=== PATIENT | female | born 1990 | race Caucasian/White ===

== ENCOUNTER 2025-05-31 05:14 | Inpatient (IN) | payer OTHER ==
[2025-05-31] MEDS ORDERED: Terbutaline 1 MG/ML SDV SUBCUT PRN (05:18)
[2025-05-31] MEDS ORDERED: Sodium Chloride 0.9% 10 ML Syringe FLUSH PRN (05:18)
[2025-05-31] MEDS ORDERED: Nalbuphine 10 MG/1 ML Vial IVPUSH PRN (05:18)
[2025-05-31] MEDS ORDERED: Carboprost Tromethamine 250 MCG/1 mL Vial IM PRN (05:18)
[2025-05-31] MEDS ORDERED: Ondansetron 4 MG/2 ML SDV IVPUSH PRN (05:18)
[2025-05-31] MEDS ORDERED: Sodium Chloride 0.9% 2.5 ML Syringe FLUSH PRN (05:18)
[2025-05-31] MEDS ORDERED: Water For Irrigation,Sterile 1,000 ML Container IRR PRN (05:18)
[2025-05-31] MEDS ORDERED: Oxytocin/0.9 % Sodium Chloride 30 UNIT/500 ML BAG IV SCH (05:30)
[2025-05-31] MEDS: Lactated Ringers 1,000 ML IV SCH (06:07)
[2025-05-31 06:15] LABS: MEAN PLATELET VOLUME 11.5 fL (9.4-12.3); NRBC ABSOLUTE 0.00 K/uL (0.00-0.02); NRBC PERCENT 0.0 /100WBC (0.0-0.2); PLATELET COUNT,PLT 206 K/uL (150-400); RED BLOOD CELL COUNT 4.47 M/uL (4.10-5.30); WHITE BLOOD CELL COUNT,WBC 13.81 K/uL (3.9-11.3)
[2025-05-31] MEDS ORDERED: ePHEDrine 50 MG/ML SDV IVPUSH PRN (07:10)
[2025-05-31] MEDS ORDERED: dexmedeTOMIDine HCl 200 MCG/2 ML SDV EPIDUR SCH (07:15)
[2025-05-31] MEDS: Ropivacaine HCl/PF 400 MG in Premix Bag 1 BAG EPIDUR SCH (09:40)
[2025-05-31] MEDS: Oxytocin/0.9 % Sodium Chloride 30 UNIT/500 ML BAG IV SCH (10:35)
[2025-05-31] MEDS ORDERED: fentaNYL 100 MCG/2 ML SDV ONE (12:06)
[2025-05-31] MEDS ORDERED: Ondansetron 4 MG/2 ML SDV ONE ×2 (13:22→13:35)
[2025-05-31] MEDS ORDERED: Aluminum Hydroxide/Magnesium Hydroxide/Simethicone Susp 30 ML Cup PO PRN (14:26)
[2025-05-31] MEDS ORDERED: Lanolin 100% Cream 7 GM Tube TOP PRN (14:26)
[2025-05-31 14:33] LABS: PH,UMBILICAL ARTERIAL 7.278 (7.18-7.38); PH,UMBILICAL VENOUS 7.324 (7.25-7.45)
[2025-06-01] MEDS: NIFEdipine 30 MG Tab.ER PO SCH (10:08)
[2025-06-01 11:29] LABS: MEAN PLATELET VOLUME 11.2 fL (9.4-12.3); NRBC ABSOLUTE 0.00 K/uL (0.00-0.02); NRBC PERCENT 0.0 /100WBC (0.0-0.2); PLATELET COUNT,PLT 169 K/uL (150-400); RED BLOOD CELL COUNT 3.59 M/uL (4.10-5.30); WHITE BLOOD CELL COUNT,WBC 18.55 K/uL (3.9-11.3)
[2025-06-01 11:57] LABS: A/G RATIO 0.7 (0.9-1.6); ALANINE AMINOTRANSFERASE,ALT 34.0 IU/L (14-63); ASPARTATE AMNIOTRANSFERASE,AST 33.0 IU/L (15-37); BILIRUBIN TOTAL 0.1 mg/dL (0.2-1.0); BLOOD UREA NITROGEN,BUN 12.0 mg/dL (7.0-18.0); CARBON DIOXIDE,CO2 20.4 mmol/L (21.0-32.0); CHLORIDE,CL 106.0 mmol/L (98-107); CREATININE 0.5 mg/dL (0.6-1.0); EST CRCL DRUG DOSING (CG) 135.61 mL/min; GLUCOSE RANDOM 105.0 mg/dL (74-106); POTASSIUM,K 3.9 mmol/L (3.5-5.1); PROTEIN TOTAL,TP 6.0 g/dL (6.4-8.2); SODIUM,NA 138.0 mmol/L (136-145)
[2025-06-01 12:06] LABS: ESTIMATED GFR 125.0 mL/min (>60)
[2025-06-02] MEDS: Witch Hazel Medicated Pads 40/Jar TOP PRN (10:01)
[2025-06-02] MEDS: Benzocaine/Menthol 20%-0.5% Spray 78 GM Cannister TOP PRN (10:01)
== END 2025-06-02 11:55 | disposition home or self-care (01) | DRG 807 ==
LOC: INTOOBSV 05:14 → OBSVTOIN 05:14 → UNDOADMOB 05:14 → MW.OB 05:14 → UNDODISIN 06-02 11:55 → PREOBSVTOIN 06-07 12:17
PROVIDERS: ADMIT Obstetrics & Gynecology; ATTEND Obstetrics & Gynecology
PROC: 0KQM0ZZ Repair Perineum Muscle, Open Approach (ICD-10-PCS; principal; 2025-05-31)
PROC: 10E0XZZ Delivery of Products of Conception, External Approach (ICD-10-PCS; 2025-05-31)
PROC: 3E033VJ Introduction of Other Hormone into Peripheral Vein, Percutaneous Approach (ICD-10-PCS; 2025-05-31)
DX: O14.04 Mild to moderate pre-eclampsia, complicating childbirth (principal); Z37.2 Twins, both liveborn; Z3A.37 37 weeks gestation of pregnancy; O30.043 Twin pregnancy, dichorionic/diamniotic, third trimester; O24.420 Gestational diabetes mellitus in childbirth, diet controlled; O99.214 Obesity complicating childbirth; O32.1XX2 Maternal care for breech presentation, fetus 2; O70.1 Second degree perineal laceration during delivery
CPT/HCPCS: 01967; 36415; 80053; 82803; 85014; 85018; 85027; 86592; 86850; 86900; 86901; A9270-GY; J2371; J2405; J2590; J2795; J3010; J7120